=== PATIENT | male | born 1975 | race American Indian/Alaskan Native ===

== ENCOUNTER 2016-06-22 17:45 | Emergency (ER) | payer SELFPAY ==
[2016-06-22 19:43] VITALS: BP 192/108
== END 2016-06-22 21:38 | disposition left against medical advice (07) ==
LOC: ED 17:45
DX: M25.562 Pain in left knee (principal); M79.605 Pain in left leg; J45.909 Unspecified asthma, uncomplicated; I10 Essential (primary) hypertension; Z53.21 Procedure and treatment not carried out due to patient leaving prior to being seen by health care provider